=== PATIENT | male | born 1995 | race Caucasian/White ===

== ENCOUNTER → 2020-07-09 | Outpatient (CLI) | payer OTHER ==
--- NOTE | 2020-07-09 16:49 | RAD ---
XR EXAM OF ANKLE_LEFT 3V History: Reason: ANKLE PAIN / Spl. Instructions: / History: Technique: 3 views left ankle Comparison: None. Findings: Normal alignment. Symmetric ankle mortise. No fracture. Lateral ankle soft tissue swelling. Impression: 1. No acute osseous abnormality. Electronically signed by: Aneesh Vera DO (07/09/2020 4:47 PM) [id number]
== END ==
LOC: RAD 13:56
PROVIDERS: ATTEND Nurse Practitioner Family
DX: M25.572 Pain in left ankle and joints of left foot (principal); M79.89 Other specified soft tissue disorders
CPT/HCPCS: 73610